=== PATIENT | female | born 1985 | race Caucasian/White ===

== ENCOUNTER 2018-06-01 13:57 | Emergency (ER) | payer BC ==
[~2018-06-01] VITALS: Ht 149.9 cm; Wt 74.8 kg
[~2018-06-01 13:57] MED LIST: IBUP200T58 PO
[2018-06-01] MEDS ORDERED: IV NORMAL SALINE 1000ML BAG 1,000 ML IV SCH (15:21)
[2018-06-01 15:37] LABS: BILIRUBIN,URINE NEGATIVE (NEG); CLARITY,URINE CLEAR; COLOR,URINE YELLOW; NITRITE,URINE NEGATIVE (NEG); PH,URINE 5.5; PROTEIN,URINE NEGATIVE (NEG-TRACE); UROBILINOGEN,URINE 0.2 mg/dL (0.2 mg/dL)
--- NOTE | 2018-06-01 15:38 | PHYS DOC ---
Past Medical History Past Medical History: Anxiety, Diabetes-Type II Additional Past Medical Histor: CHRONIC BACK PAIN, DDD Past Surgical History: No Surgical History Alcohol Use: None Drug Use: None Adult General Chief Complaint Chief Complaint: HEADACHE HPI HPI Patient is a 32-year-old female who presents to the emergency department for evaluation. She states she has frequent headaches, up to 3 times a week. She went to an urgent care today, because she began developing a gradual headache yesterday in her left retro-orbital area, which seemed to worsen throughout the past 24 hours. She states that the current headache is described as a sharp pain in her left retro-orbital area, and is worsened with eye movements. She does have some mild photophobia. She has not had any neck pain, fever, vomiting. She denies any dizziness or lightheadedness. She has not had any numbness or weakness. She states that the current headache is "different" than the prior headaches that she has had, although she states that she has had a "migraine" once in the past, which involved vomiting as well. She went to an urgent care center was sent to the emergency department for evaluation. the patient states that her last menstrual period was at the beginning of April, and her bedside test is positive. The patient states she has a history of diabetes, but states that she does not have a physician and is not taking any medications. Review of Systems Review of Systems Constitutional: Denies fever or chills [] Eyes: Denies change in visual acuity, redness, or eye pain [] HENT: Denies nasal congestion or sore throat [] Respiratory: Denies cough or shortness of breath [] Cardiovascular: The patient denies any shortness of breath, chest pain, palpitations, or orthopnea[] GI: Denies abdominal pain, nausea, vomiting, bloody stools or diarrhea [] : Denies dysuria or hematuria. The patient has not had any vaginal bleeding or discharge. Has had some intermittent abdominal/pelvic pain over the past 2 weeks, but denies any abdominal or pelvic pain currently. [] Musculoskeletal: Denies back pain or joint pain [] Integument: Denies rash or skin lesions [] Neurologic: Denies headache, focal weakness or sensory changes [] Endocrine: Denies polyuria or polydipsia [] All other systems were reviewed and found to be within normal limits, except as documented in this note. Current Medications Current Medications Current Medications Medications (Trade) Dose Ordered Sig/Gaby Start Time Stop Time Status Last Admin Dose Admin Acetaminophen (Tylenol) 650 mg 1X ONCE 06/01/18 15:45 06/01/18 15:46 DC 06/01/18 16:08 650 MG Diphenhydramine HCl (Benadryl) 12.5 mg 1X ONCE 06/01/18 18:45 06/01/18 18:46 DC 06/01/18 19:06 12.5 MG Lidocaine HCl (Lidocaine 1% Pf) 30 ml STK-MED ONCE 06/01/18 17:49 06/01/18 17:50 DC Prochlorperazine Edisylate (Compazine) 10 mg 1X ONCE 06/01/18 18:45 06/01/18 18:46 DC 06/01/18 19:06 10 MG Sodium Chloride 1,000 ml @ 1,000 mls/hr 1X ONCE 06/01/18 16:45 06/01/18 17:44 DC 06/01/18 17:30 1,000 MLS/HR Tetracaine HCl (Tetracaine) 1 drop 1X ONCE 06/01/18 18:00 06/01/18 18:01 DC 06/01/18 17:38 1 DROP Allergies Allergies Allergies Coded Allergies Type Severity Reaction Last Updated Verified azithromycin Allergy Intermediate Rash 03/31/18 No oxycodone Allergy Intermediate Rash 03/31/18 No tramadol Allergy Intermediate Rash 03/31/18 No Physical Exam Physical Exam PHYSICAL EXAM: CONSTITUTIONAL: Well developed, well nourished HEAD: normocephalic, atraumatic EENT: EOMI. there is no ptosis. Intraocular pressures are 17 on the right, 19 on the left, by tonopen. There is mild subjective discomfort with ocular movement although this does not appear to limit the patient's ocular movement. There is no proptosis. Conjunctival appear normal bilaterally, without any injection or erythema. Pupils are symmetrical and bilaterally reactive, sclerae non-icteric; visual campbell are intact by confrontation. Moist mucous membranes. NECK: Supple, non-tender; no meningismus. LUNGS: Lungs CTA, breathing even and unlabored. Normal air movement. HEART: Regular rate and rhythm, no murmur CHEST: No deformity; non-tender ABDOMEN: The abdomen is soft, there is very mild pelvic tenderness to palpation , without any other abdominal tenderness to palpation, without rebound or guarding. The upper abdomen is non-tender, no masses or bruits. EXTREM: Normal ROM; no deformity, no calf tenderness. Normal pulses palpable in all extremities. There is no pedal edema. SKIN: No rash; no diaphoresis NEURO: Alert; normal speech and cognition; CN's grossly intact; strength grossly intact without focal deficit. BACK: No CVA TTP. Current Patient Data Vital Signs Vital Signs Date Time Temp Pulse Resp B/P (MAP) Pulse Ox O2 Delivery O2 Flow Rate FiO2 06/01/18 15:26 98.5 90 18 117/81 (93) 98 Room Air 98.5 Lab Values Laboratory Tests Test 06/01/18 15:15 06/01/18 15:23 06/01/18 15:45 06/01/18 15:54 Urine Collection Type Clean catch Urine Color Yellow Urine Clarity Clear Urine pH 5.5 Urine Specific Muse >=1.030 Urine Protein Negative mg/dL (NEG-TRACE) Urine Glucose (UA) >=1000 mg/dL (NEG) Urine Ketones (Stick) Negative mg/dL (NEG) Urine Blood Negative (NEG) Urine Nitrite Negative (NEG) Urine Bilirubin Negative (NEG) Urine Urobilinogen Dipstick 0.2 mg/dL (0.2 mg/dL) Urine Leukocyte Esterase Negative (NEG) Urine RBC Occ /HPF (0-2) Urine WBC Occ /HPF (0-4) Urine Squamous Epithelial Cells Many /LPF Urine Bacteria Many /HPF (0-FEW) POC Urine HCG, Qualitative Hcg positive (Negative) White Blood Count 10.2 x10^3/uL (4.0-11.0) Red Blood Count 5.72 x10^6/uL (3.50-5.40) H Hemoglobin 17.0 g/dL (12.0-15.5) H Hematocrit 49.8 % (36.0-47.0) H Mean Corpuscular Volume 87 fL (79-100) Mean Corpuscular Hemoglobin 30 pg (25-35) Mean Corpuscular Hemoglobin Concent 34 g/dL (31-37) Red Cell Distribution Width 13.5 % (11.5-14.5) Platelet Count 239 x10^3/uL (140-400) Neutrophils (%) (Auto) 67 % (31-73) Lymphocytes (%) (Auto) 26 % (24-48) Monocytes (%) (Auto) 6 % (0-9) Eosinophils (%) (Auto) 1 % (0-3) Basophils (%) (Auto) 1 % (0-3) Neutrophils # (Auto) 6.9 x10^3uL (1.8-7.7) Lymphocytes # (Auto) 2.6 x10^3/uL (1.0-4.8) Monocytes # (Auto) 0.6 x10^3/uL (0.0-1.1) Eosinophils # (Auto) 0.1 x10^3/uL (0.0-0.7) Basophils # (Auto) 0.1 x10^3/uL (0.0-0.2) D-Dimer (Leslee) 0.93 ug/mlFEU (0.00-0.50) H Maternal Serum HCG Beta Subunit 52126 mIU/mL (0-5) H Sodium Level 131 mmol/L (136-145) L Potassium Level 4.2 mmol/L (3.5-5.1) Chloride Level 99 mmol/L (98-107) Carbon Dioxide Level 25 mmol/L (21-32) Anion Gap 7 (6-14) Blood Urea Nitrogen 12 mg/dL (7-20) Creatinine 0.7 mg/dL (0.6-1.0) Estimated GFR (Cockcroft-Gault) 97.6 BUN/Creatinine Ratio 17 (6-20) Glucose Level 399 mg/dL (70-99) H Calcium Level 8.9 mg/dL (8.5-10.1) Total Bilirubin 0.6 mg/dL (0.2-1.0) Aspartate Amino Transferase (AST) 14 U/L (15-37) L Alanine Aminotransferase (ALT) 26 U/L (14-59) Alkaline Phosphatase 100 U/L (46-116) Total Protein 7.4 g/dL (6.4-8.2) Albumin 3.2 g/dL (3.4-5.0) L Albumin/Globulin Ratio 0.8 (1.0-1.7) L Glucose (Fingerstick) 371 mg/dL (70-99) H Test 06/01/18 18:00 06/01/18 18:18 CSF Color Colorless CSF Clarity Clear CSF WBC 0 CSF RBC 20 CSF Glucose 185 mg/dL (37-70) H CSF Total Protein 29.2 mg/dL (15.0-45.0) Glucose (Fingerstick) 241 mg/dL (70-99) H Laboratory Tests 06/01/18 15:45 Laboratory Tests 06/01/18 15:45 EKG EKG [Normal sinus rhythm at a rate of 94 beats for minute, normal axis, normal intervals, nonspecific ST/T changes.] Radiology/Procedures Radiology/Procedures [PROCEDURE: OB <14 WKS W/TV Early OB ultrasound History: Pain. Positive test. Comparison: None. Technique: Transabdominal imaging was performed for initial evaluation of the pelvis. Endovaginal imaging was performed to evaluate optimally the lower uterine segment and to increase sensitivity for detection of intrauterine . Findings: Transabdominal imaging: Gynecologic structures are not well seen with transabdominal imaging. Endovaginal imaging: Single live intrauterine is identified with gestational sac, yolk sac, and embryonic pole seen. Gestational sac appears regular. No subchorionic hemorrhage is identified. Mean crown-rump length is 4.5 mm corresponding to 6 weeks 1 day. Estimated date of delivery based on this measurement is January 24, 2019. Embryonic heart motion is 104 bpm. Uterus measures 11.0 cm in length. Left ovary measures 2.7 x 1.7 x 1.3 cm and is unremarkable. Right ovary is not visualized, obscured by bowel gas. Left ovary demonstrates normal vascular flow upon Doppler interrogation and is without evidence of torsion. Impression: 1. Single live intrauterine . Average ultrasound age is 6 weeks 1 day. Estimated date of delivery is January 24, 2019.] PROCEDURE: CT HEAD WO CONTRAST CT head without intravenous contrast History: Headache behind left eye. Worse with motion. Patient . Patient was shielded and consent was obtained. Comparison: None. Technique: Axial images are obtained of the head from the skull base through the vertex without IV contrast. Exposure: One or more of the following individualized dose reduction techniques were utilized for this examination: 1. Automated exposure control 2. Adjustment of the mA and/or kV according to patient size 3. Use of iterative reconstruction technique Findings: The ventricles are appropriate in size, shape, and location for the patient's age. No obvious intracranial mass, mass-effect, midline shift, hemorrhage or obvious acute infarction is identified. Basilar cisterns are patent. Bone windows demonstrate no acute calvarial abnormality. The visualized paranasal sinuses appear clear. Impression: 1. No acute intracranial process. Course & Med Decision Making Course & Med Decision Making Pertinent Labs and Imaging studies reviewed. (See chart for details) [LUMBAR PUNCTURE PROCEDURE NOTE: After informed consent was obtained from the patient, the patient was laid in the left lateral decubitus position, and her back was prepped and draped in the usual sterile manner. Sterile technique was used. The L3/4 interspace was entered with a #20-gauge needle, and 6 mL of clear CSF was obtained. There was an initial bloody blush, suggesting a traumatic tap, but the fluid cleared rapidly. The fluid drip rate was normal. The patient tolerated the procedure well, and was recovered in the supine position without any neurological deficit or complications. 6:45 PM: The patient's condition remains stable. Care will be turned over to Dr. Gaitan at shift change, pending MR venogram, and CSF results. Report given. I assumed Care of this patient at shift turnover from Dr. Ford. I did reevaluate and examined the patient. She had received medications for her headache. Her headache was mildly improved although she had just received the medications. Her MRV returned negative for any acute thrombosis. Her lumbar puncture and spinal fluid also did not have any acute findings. The rest of her workup was unremarkable. I reviewed all results with the patient and answered all of her questions. Patient now requesting discharge home with the knowledge that her tests all look okay. She is placed on metformin, 500 mg twice a day and advised to taper this medication up to an ultimate goal 1000 twice a day. She is given a prescription for Fiorinal as needed for headaches at home. She will follow up with Dr. Howe or return to the ER for any new or worsening symptoms. Patient is agreeable to the plan of care. Dragon Disclaimer Dragon Disclaimer This electronic medical record was generated, in whole or in part, using a voice recognition dictation system. Departure Departure Impression: Primary Impression: Acute headache Additional Impressions: Diabetes mellitus Referrals: KATHI DRUMMOND (PCP) Scripts Butalbital/Aspirin/Caffeine (FIORINAL 50-325-40 MG CAPSULE) 1 Each Capsule 1 EACH PO TID for headache, #21 CAP Prov: STEPHANIE GAITAN DO 06/01/18 Metformin Hcl (METFORMIN HCL) 500 Mg Tablet 500 MG PO BIDWMEALS for ANTI-DIABETIC, #120 TAB 0 Refills Prov: STEPHANIE GAITAN DO 06/01/18 Problem Qualifiers DEBORAH FORD MD Jun 01, 2018 15:38 STEPHANIE GAITAN DO Jun 01, 2018 19:41
[2018-06-01 15:45] LABS: BACTERIA,URINE MANY /HPF (0-FEW); RBC,URINE OCC /HPF (0-2); SQUAMOUS EPITHELIAL CELL,UR MANY /LPF; WBC,URINE OCC /HPF (0-4)
[2018-06-01] MEDS ORDERED: ACETAMINOPHEN 325 MG TABLET. PO ONE (15:45)
[2018-06-01 15:55] LABS: BASO # 0.1 x10^3/uL (0.0-0.2); BASO % 1 % (0-3); EOS # 0.1 x10^3/uL (0.0-0.7); EOS % 1 % (0-3); HEMATOCRIT 49.8 % (36.0-47.0); LYMPH # 2.6 x10^3/uL (1.0-4.8); LYMPH % 26 % (24-48); MEAN CORPUSCULAR HEMOGLOBIN 30 pg (25-35); MEAN CORPUSCULAR HGB CONC 34 g/dL (31-37); MEAN CORPUSCULAR VOLUME 87 fL (79-100); MONO # 0.6 x10^3/uL (0.0-1.1); MONO % 6 % (0-9); NEUT # 6.9 x10^3uL (1.8-7.7); NEUT % 67 % (31-73); PLATELET COUNT 239 x10^3/uL (140-400); RED BLOOD COUNT 5.72 x10^6/uL (3.50-5.40); RED CELL DISTRIBUTION WIDTH 13.5 % (11.5-14.5); WHITE BLOOD COUNT 10.2 x10^3/uL (4.0-11.0)
[2018-06-01 16:06] LABS: CALCIUM 8.9 mg/dL (8.5-10.1); CREATININE 0.7 mg/dL (0.6-1.0); GFR 97.6; POTASSIUM 4.2 mmol/L (3.5-5.1)
[2018-06-01 16:13] LABS: ALBUMIN 3.2 g/dL (3.4-5.0); ALBUMIN/GLOBULIN RATIO 0.8 (1.0-1.7); TOTAL BILIRUBIN 0.6 mg/dL (0.2-1.0); TOTAL PROTEIN 7.4 g/dL (6.4-8.2)
--- NOTE | 2018-06-01 16:41 | RAD ---
Early OB ultrasound History: Pain. Positive test. Comparison: None. Technique: Transabdominal imaging was performed for initial evaluation of the pelvis. Endovaginal imaging was performed to evaluate optimally the lower uterine segment and to increase sensitivity for detection of intrauterine . Findings: Transabdominal imaging: Gynecologic structures are not well seen with transabdominal imaging. Endovaginal imaging: Single live intrauterine is identified with gestational sac, yolk sac, and embryonic pole seen. Gestational sac appears regular. No subchorionic hemorrhage is identified. Mean crown-rump length is 4.5 mm corresponding to 6 weeks 1 day. Estimated date of delivery based on this measurement is January 24, 2019. Embryonic heart motion is 104 bpm. Uterus measures 11.0 cm in length. Left ovary measures 2.7 x 1.7 x 1.3 cm and is unremarkable. Right ovary is not visualized, obscured by bowel gas. Left ovary demonstrates normal vascular flow upon Doppler interrogation and is without evidence of torsion. Impression: 1. Single live intrauterine . Average ultrasound age is 6 weeks 1 day. Estimated date of delivery is January 24, 2019. Electronically signed by: Jermain Downey MD (06/01/2018 4:37 PM) [facility]
[2018-06-01] MEDS ORDERED: IV NORMAL SALINE 1000ML BAG 1,000 ML IV ONE (16:45)
--- NOTE | 2018-06-01 16:48 | RAD ---
CT head without intravenous contrast History: Headache behind left eye. Worse with motion. Patient . Patient was shielded and consent was obtained. Comparison: None. Technique: Axial images are obtained of the head from the skull base through the vertex without IV contrast. Exposure: One or more of the following individualized dose reduction techniques were utilized for this examination: 1. Automated exposure control 2. Adjustment of the mA and/or kV according to patient size 3. Use of iterative reconstruction technique Findings: The ventricles are appropriate in size, shape, and location for the patient's age. No obvious intracranial mass, mass-effect, midline shift, hemorrhage or obvious acute infarction is identified. Basilar cisterns are patent. Bone windows demonstrate no acute calvarial abnormality. The visualized paranasal sinuses appear clear. Impression: 1. No acute intracranial process. Electronically signed by: Jermain Downey MD (06/01/2018 4:45 PM) [place] [id number]
[2018-06-01] MEDS ORDERED: LIDOCAINE 1% PF 30 ML VIAL. ONE (17:49)
[2018-06-01] MEDS ORDERED: TETRACAINE 0.5% OPHTH SOLUTION 4ML BOTTLE. OU ONE (18:00)
[2018-06-01 18:30] LABS: CSF PROTEIN 29.2 mg/dL (15.0-45.0)
[2018-06-01 18:41] LABS: CSF CLARITY CLEAR; CSF COLOR COLORLESS; CSF RBC COUNT 20; CSF WBC COUNT 0
[2018-06-01] MEDS ORDERED: PROCHLORPERAZINE 10 MG/2 ML VIAL. IV ONE (18:45)
[2018-06-01] MEDS ORDERED: diphenhydrAMINE 50 MG/ML VIAL IVP ONE (18:45)
--- NOTE | 2018-06-01 19:04 | RAD ---
MRA brain HISTORY: Left orbital headache Multi sequential multiplanar MRV of the brain was performed with 3-D maximum intensity projected imaging. The venous system appears normal. There is no evidence of venous sinus thrombosis. IMPRESSION: Negative examination. Electronically signed by: Luis Mckeon III, MD (06/01/2018 7:00 PM) [employer]
[2018-06-01 19:12] VITALS: BP 96/60
[2018-06-01] MEDS ORDERED: METF500T5 PO (19:34)
[2018-06-01] MEDS ORDERED: BUTA1CAP31 PO (19:37)
--- NOTE | 2018-06-02 06:09 | EKG ---
[address] [place] [address] Test Date: 2018-06-01 Test Time: 16:00:13 Pat Name: LINDA RODRIGUEZ Department: Room: Gender: F Communications Intern: FLORINDA : 1985 Requested By: DEBORAH MCCAULEY Order Number: [id number] Reading MD: Measurements Intervals [place] Rate: 93 P: 32 DE: 138 QRS: 31 QRSD: 82 T: 33 QT: 360 QTc: 450 Interpretive Statements SINUS RHYTHM NON SPECIFIC ST-T ABNORMALITY (ELEVATION) OTHERWISE NORMAL ECG No previous ECG available for comparison
== END 2018-06-01 19:52 | disposition home or self-care (01) ==
LOC: ER 13:57
DX: O24.911 Unspecified diabetes mellitus in pregnancy, first trimester (principal); O26.891 Other specified pregnancy related conditions, first trimester; R51 Headache; O99.341 Other mental disorders complicating pregnancy, first trimester; F41.8 Other specified anxiety disorders; Z88.5 Allergy status to narcotic agent; Z88.1 Allergy status to other antibiotic agents; Z3A.01 Less than 8 weeks gestation of pregnancy
CPT/HCPCS: 36415; 62270; 70450; 70544; 76801; 76817; 80053; 81001; 81025; 82945; 82962; 84157; 84702; 85025; 85379; 86900; 86901; 87070; 87086; 89051; 93005; 96374; 96375; 99285; J0780; J1200; J7030